=== PATIENT | female | born 1960 | race Caucasian/White ===

== ENCOUNTER 2024-03-06 11:01 | Outpatient (RCR) | payer OTHER, SELFPAY ==
[2024-03-06 10:46] VITALS: BMI 29.0
[2024-03-06 12:10] VITALS: BMI 29.0; BMI 30.8
== END 2024-05-20 10:21 | disposition home or self-care (01) ==
LOC: ANHDMC 11:01
PROVIDERS: Visit Provider Nurse Practitioner Family
DX: Z71.3 Dietary counseling and surveillance (principal); Z68.29 Body mass index [BMI] 29.0-29.9, adult
CPT/HCPCS: 97802